=== PATIENT | female | born 1955 | race African-American/Black ===

== ENCOUNTER 2016-10-28 11:06 | Emergency (ER) | payer BC ==
[~2016-10-28] VITALS: Ht 170.2 cm; Wt 127.0 kg
[2016-10-28 11:15] VITALS: BP 126/80
--- NOTE | 2016-10-28 11:39 | RAD ---
2 view right shoulder radiograph 10/28/2016 Indication: Right shoulder fall and right shoulder pain Comparison: None. Findings: AP and scapular Y view of the right shoulder. No acute fracture or traumatic malalignment. Subchondral sclerosis and cysts at the greater tuberosity. No abnormal periarticular calcifications. Right acromioclavicular articulation is maintained. Impression: 1. No acute osseous abnormality. 2. Subchondral cystic changes at the greater tuberosity which can be associated with rotator cuff pathology. Clinical correlation is recommended
--- NOTE | 2016-10-28 12:03 | PHYS DOC ---
General Chief Complaint: SHOULDER INJURY Stated Complaint: RIGHT SHOULDER PAIN Time Seen by MD: 11:08 Source: patient Exam Limitations: no limitations Problems: History of Present Illness Initial Comments Patient is a 60-year-old female who comes to the ED complaining of right shoulder pain. Patient states that prior to arrival she was trying to leave her home for work. She says she stepped out onto a wooden step gave way and she fell landing on her posterior lateral right shoulder. She denies head trauma loss of consciousness headache or neck pain, she comes to the department complaining of severe posterior lateral right shoulder pain with movement. Patient states her symptoms are relieved at rest however any attempt to move her right arm results in severe posterolateral shoulder pain. She denies numbness weakness tingling or radiating symptoms but states she is unwilling to move her right arm at all due to the discomfort in her shoulder. No pre-arrival treatment no prior injury to this shoulder. Patient adamantly denies any other injuries resulting from the fall. Occurred: this morning Severity: moderate Injuries/Pain Location: upper extremity Context: other Loss of Consciousness: no loss of consciousness Modifying Factors: improves with immobilization, worse with jarring, worse with movement, improves with rest Associated Symptoms: other Allergies: Coded Allergies: No Known Drug Allergies (Unverified , 10/28/16) Past Medical History Medical History: no medical history Surgical History: noncontributory Social History Smoker: cigarettes Alcohol: occasionally Drugs: none Review of Systems Constitutional: denies chills, denies diaphoresis, denies fever, denies malaise Eyes: denies blindness, denies blurred vision, denies pain, denies photophobia Ears, Nose, Mouth, Throat: denies ear pain, denies ear discharge, denies nose pain, denies nose discharge, denies epistaxis, denies mouth pain, denies throat pain Respiratory: denies cough, denies shortness of breath, denies wheezing Cardiovascular: denies chest pain, denies palpitations, denies syncope Gastrointestinal: denies abdominal pain, denies nausea, denies vomiting Musculoskeletal: see HPI Psychiatric/Neurological: see HPI Physical Exam General Appearance: no apparent distress, obese Head: no evidence of injury (normocephalic atraumatic negative Gauthier sign negative raccoon eyes) Eyes: bilateral eye normal inspection, bilateral eye PERRL, bilateral eye EOMI Ears, Nose, Mouth, Throat: hearing grossly normal, no evidence of ENT injury ( multiple missing teeth) Neck: non-tender, full range of motion Cardiovascular/Respiratory: normal peripheral pulses, no respiratory distress Back: no CVA tenderness, no vertebral tenderness Extremities: other (diffuse posterolateral right shoulder tenderness no palpable deformity. SITS not tested due to patient discomfort/refusal, no swelling ecchymosis or other skin changes noted.) Neurologic/Psychiatric: track layer II-XII nml as tested, alert, normal mood/affect, oriented x 3, other (no definitive motor deficit noted, uncertain as to soft tissue pathology in the right shoulder as the patient was unwilling to undergo confrontational muscle testing.) Skin: normal color, warm/dry [place] Coma Score Best Eye Response: (4) open spontaneously Best Verbal Response: (5) oriented Best Motor Response: (6) obeys commands [place] Total: 15 Orders, Labs, Meds Right shoulder: No acute fracture or dislocation, interpreted by Dr. Colby. I discussed treatment options with the patient. I discussed smoking cessation and recommended she do so. Extremity neurovascularly intact after placed in a sling patient expressed agreement and understanding with the treatment plan. Departure Time of Disposition: 11:58 Disposition: 01 HOME, SELF-CARE Diagnosis: internal derangement R shoulder NOS, mechanical fa Condition: GOOD Patient Instructions: Fall Prevention and Home Safety, [id number], RICE - Routine Care for Injuries, [id number], Rotator Cuff Injury, Smoking Hazards Additional Instructions: Take an extra precaution and have the wooden step which caused you to fall repaired DEVANG. Work excuse and restriction: No use of right upper extremity until cleared by your doctor. RICE, see handout. Stop smoking, seek medical assistance if necessary. Wear the right shoulder sling as needed for symptom control until you follow up with your doctor. Fynm-jlk-[id number] ibuprofen 600 mg every 6-8 hours for baseline discomfort. Prescription: [place] 5 mg quantity 20 (take with food to avoid abdominal discomfort/nausea/vomiting). Follow-up with your doctor later this week for a recheck and further evaluation (may need MRI or orthopedics referral). Return to ED with new or changing symptoms. DIONNE COLBY DO Oct 28, 2016 12:03
[2016-10-28] MEDS ORDERED: HYDR-971 PO (12:04)
== END 2016-10-28 12:14 | disposition home or self-care (01) ==
LOC: ER 11:06
DX: M24.811 Other specific joint derangements of right shoulder, not elsewhere classified (principal); F17.210 Nicotine dependence, cigarettes, uncomplicated; W10.9XXA Fall (on) (from) unspecified stairs and steps, initial encounter; Y93.89 Activity, other specified; Y99.8 Other external cause status; Y92.009 Unspecified place in unspecified non-institutional (private) residence as the place of occurrence of the external cause
CPT/HCPCS: 73030; 99284

== ENCOUNTER 2018-03-07 15:11 | Emergency (ER) | payer BC ==
[~2018-03-07] VITALS: Ht 172.7 cm; Wt 113.0 kg
[~2018-03-07 15:11] MED LIST: HYDR-3165 PO
[2018-03-07] MEDS ORDERED: PRED50TA PO (15:44)
[2018-03-07] MEDS ORDERED: MELO7.5T29 PO (15:44)
--- NOTE | 2018-03-07 15:44 | PHYS DOC ---
Past History Past Medical History: No Pertinent History Past Surgical History: No Surgical History Smoking: Non-smoker Alcohol Use: None Drug Use: None Adult General Chief Complaint Chief Complaint: UPPER EXTREMITY PAIN HPI HPI Patient is a 62 year old female who presents with left upper extremity pain and numbness. This been going on "a while." Patient reports falling in 2017 and having had the pain and numbness since that time. Patient has not seen her primary care physician for this and has taken no medicines. Nothing seems to make this better or worse. Patient reports a numb sensation in all 5 fingers along with them feeling cold when compared with her right hand. Patient is right -hand dominant. Denies any more recent trauma. Denies any chest pain or palpitations. Reports the symptoms to be moderate in intensity and cause her difficulty in sleeping habits recent she presented to the emergency department today.[] Review of Systems Review of Systems Constitutional: Denies fever or chills [] Eyes: Denies change in visual acuity, redness, or eye pain [] HENT: Denies nasal congestion or sore throat [] Respiratory: Denies cough or shortness of breath [] Cardiovascular: Chest pain or palpitations[] GI: Denies abdominal pain, nausea, vomiting, bloody stools or diarrhea [] : Denies dysuria or hematuria [] Musculoskeletal: See history of present illness[] Integument: Denies rash or skin lesions [] Neurologic: Denies headache or focal weakness[] Endocrine: Denies polyuria or polydipsia [] All other systems were reviewed and found to be within normal limits, except as documented in this note. Allergies Allergies Allergies Coded Allergies Type Severity Reaction Last Updated Verified No Known Drug Allergies 10/28/16 No Physical Exam Physical Exam Constitutional: Well developed, well nourished, no acute distress, non-toxic appearance. [] HENT: Normocephalic, atraumatic, bilateral external ears normal, oropharynx moist, no oral exudates, nose normal. [] Eyes: PERRLA, EOMI, conjunctiva normal, no discharge. [] Neck: Normal range of motion, no tenderness, supple, no stridor. [] Cardiovascular:Heart rate regular rhythm, no murmur [] Lungs & Thorax: Bilateral breath sounds clear to auscultation [] Abdomen: Not examined[] Skin: Warm, dry, no erythema, no rash. [] Back: No tenderness, no CVA tenderness. [] Extremities: + tenderness around the left shoulder, finger tips of her left hand do feel cool when compared to her right, no cyanosis, no clubbing, ROM intact, no edema. [] Neurologic: Alert and oriented X 3, normal motor function, no focal deficits noted. When performing 2 point discrimination of her left hand, she would report 2 points when I was only touching her with one. This makes the 2 point discrimination unreliable. There were other times when she would say 1 when the two points were by 20+mm. [] Psychologic: Affect normal, judgement normal, mood normal. [] EKG EKG [] Radiology/Procedures Radiology/Procedures [] Course & Med Decision Making Course & Med Decision Making Pertinent Labs and Imaging studies reviewed. (See chart for details) Medical decision making: This appears to be a long-standing problem for this patient, do not see any evidence of any acute neurologic or vascular compromise. We will start with anti-inflammatory medication along with pain medication and have patient follow up with her primary care physician. There is no evidence of an infection nor stroke syndrome nor this being of cardiac etiology.[] Dragon Disclaimer Dragon Disclaimer This electronic medical record was generated, in whole or in part, using a voice recognition dictation system. Departure Departure: Impression: Primary Impression: Paresthesia of left upper extremity Disposition: 01 HOME, SELF-CARE Condition: GOOD Referrals: FERNANDO SPANN DO (PCP) Follow-up in 2 days Patient Instructions: Paresthesia Additional Instructions: Follow-up with your primary care physician in 2 days. Take the medication as prescribed. Return to the ER if worsening pain or any other concerns. Scripts Prednisone (PREDNISONE) 50 Mg Tablet 1 TAB PO DAILY for INFLAMMATION, #5 TAB Prov: JOSE HOYOS DO 03/07/18 Meloxicam (MELOXICAM) 7.5 Mg Tablet 7.5 MG PO DAILY for PAIN, #20 TAB Prov: JOSE HOYOS DO 03/07/18 JOSE HOYOS DO Mar 07, 2018 15:44
[2018-03-07 16:00] VITALS: BP 122/73
== END 2018-03-07 16:00 | disposition home or self-care (01) ==
LOC: ER 15:11
DX: R20.2 Paresthesia of skin (principal); M79.602 Pain in left arm
CPT/HCPCS: 99283

== ENCOUNTER → 2018-04-08 | Outpatient (CLI) | payer BC, OTHER ==
[~2018-04-08] MED LIST changes: +MELO7.5T29 PO; +PRED50TA PO
[2018-04-08 17:49] LABS: ALBUMIN 3.4 g/dL (3.4-5.0); ALBUMIN/GLOBULIN RATIO 0.9 (1.0-1.7); CALCIUM 8.8 mg/dL (8.5-10.1); GFR 68.2; POTASSIUM 4.1 mmol/L (3.5-5.1); TOTAL BILIRUBIN 0.4 mg/dL (0.2-1.0); TOTAL PROTEIN 7.3 g/dL (6.4-8.2)
[2018-04-08 18:08] LABS: BASO % 1 % (0-3); EOS # 0.1 x10^3/uL (0.0-0.7); EOS % 4 % (0-3); HEMATOCRIT 41.4 % (36.0-47.0); HEMOGLOBIN 14.1 g/dL (12.0-15.5); LYMPH # 1.7 x10^3/uL (1.0-4.8); LYMPH % 46 % (24-48); MEAN CORPUSCULAR HEMOGLOBIN 31 pg (25-35); MEAN CORPUSCULAR HGB CONC 34 g/dL (31-37); MEAN CORPUSCULAR VOLUME 91 fL (79-100); MONO # 0.2 x10^3/uL (0.0-1.1); MONO % 6 % (0-9); NEUT # 1.6 x10^3uL (1.8-7.7); NEUT % 43 % (31-73); PLATELET COUNT 180 x10^3/uL (140-400); RED BLOOD COUNT 4.54 x10^6/uL (3.50-5.40); RED CELL DISTRIBUTION WIDTH 13.8 % (11.5-14.5); WHITE BLOOD COUNT 3.7 x10^3/uL (4.0-11.0)
[2018-04-09 03:13] LABS: HEMOGLOBIN A1C 5.2 % (4.8-5.6)
== END | disposition home or self-care (01) ==
LOC: SPEC 17:18
PROVIDERS: ATTEND Nurse Practitioner Family
DX: E66.01 Morbid (severe) obesity due to excess calories (principal); Z72.0 Tobacco use
CPT/HCPCS: 36415; 80053; 80061; 83036; 85025

== ENCOUNTER → 2018-04-14 | Outpatient (CLI) | payer BC, OTHER ==
--- NOTE | 2018-04-15 08:44 | RAD ---
DATE: 04/14/2018 EXAM: DIGITAL SCREEN BILAT W/CAD HISTORY: Routine screening COMPARISON: 11/09/2009 This study was interpreted with the benefit of Computerized Aided Detection (CAD). Breast Density: SCATTERED The breast parenchyma shows scattered fibroglandular densities. Breast parenchyma level B. FINDINGS: Several small smooth nodules in the lateral aspects of both breasts are unchanged and are probably intramammary lymph nodes. No new or enlarging breast densities are seen. Benign type calcifications are present. No suspicious microcalcifications have developed. IMPRESSION: Stable mammograms without evidence of malignancy. BI-RADS CATEGORY: 2 BENIGN FINDING(S) RECOMMENDED FOLLOW-UP: 12M 12 MONTH FOLLOW-UP PQRS compliance statement: Patient information was entered into a reminder system with a target due date for the next mammogram. Mammography is a sensitive method for finding small breast cancers, but it does not detect them all and is not a substitute for careful clinical examination. A negative mammogram does not negate a clinically suspicious finding and should not result in delay in biopsying a clinically suspicious abnormality. "Our facility is accredited by the [employer] Mammography Program."
== END | disposition home or self-care (01) ==
LOC: MAMMO 11:44
PROVIDERS: ATTEND Nurse Practitioner Family
DX: Z12.31 Encounter for screening mammogram for malignant neoplasm of breast (principal); N64.89 Other specified disorders of breast
CPT/HCPCS: 77067

== ENCOUNTER → 2019-10-07 | Outpatient (CLI) | payer OTHER ==
--- NOTE | 2019-10-07 15:08 | RAD ---
Right knee 3 views. HISTORY: Degenerative joint disease 3 views were taken of the right knee. There is no fracture or joint effusion. There is hypertrophic spurring on the patella. There is slight hypertrophic change in the lateral joint compartment. There is soft tissue calcification. There is mild vascular calcification. There is no fracture or joint effusion. IMPRESSION: 1. Mild osteoarthritis right knee. Electronically signed by: Sameer Grajeda MD (10/07/2019 3:05 PM) [facility]
== END ==
LOC: DXRAD 11:33
PROVIDERS: ATTEND Nurse Practitioner Family
DX: M17.11 Unilateral primary osteoarthritis, right knee (principal); M25.861 Other specified joint disorders, right knee; M76.891 Other specified enthesopathies of right lower limb, excluding foot
CPT/HCPCS: 73562

== ENCOUNTER 2021-02-04 14:07 | Emergency (ER) | payer OTHER ==
[~2021-02-04] VITALS: Ht 170.2 cm; Wt 113.0 kg
[2021-02-04 14:07] VITALS: BP 145/78
[2021-02-04] MEDS ORDERED: HYDROcodone/APAP 5/325MG 1 TAB TABLET PO ONE (14:45)
--- NOTE | 2021-02-04 15:03 | PHYS DOC ---
Past History Past Medical History: No Pertinent History (JUVE BUSCH APRN) Past Surgical History: No Surgical History (JUVE BUSCH APRN) Smoking: Non-smoker Alcohol Use: None Drug Use: None (JUVE BUSCH APRN) General Adult EDM: Chief Complaint: KNEE INJURY HPI: HPI: Patient is a 65-year-old female presents with right knee pain. Patient states that she has had the same pain for the last few months and was seen at [facility]. Patient was told she had arthritis in her knee. Patient been taking ibuprofen at home with no relief. Reports pain is worse with straightening out her leg. Range of motion intact. Patient ambulated on her own in the ER. Patient reports this is a chronic problem. Denies known injury. (JUVE BUSCH APRN) Review of Systems: Review of Systems: ROS At least 10 ROS systems have been reviewed and are negative except as documented in the HPI. General: Negative except as outlined in HPI above. Skin: Negative except as outlined in HPI above. HEENT: Negative except as outlined in HPI above. Neck: Negative except as outlined in HPI above. Respiratory: Negative except as outlined in HPI above.. Cardiovascular: Negative except as outlined in HPI above. Abdomen: Negative except as outlined in HPI above. : Negative except as outlined in HPI above. Back/MSK: Negative except as outlined in HPI above. Neuro: Negative except as outlined in HPI above. Psych: Negative except as outlined in HPI above. (JUVE BUSCH APRN) Current Medications: Current Meds: Current Medications Medications (Trade) Dose Ordered Sig/Evelina Start Time Stop Time Status Last Admin Dose Admin Acetaminophen/ Hydrocodone Bitart (Lortab 5/325) 1 tab 1X ONCE 02/04/21 14:45 02/04/21 14:46 DC 02/04/21 14:48 1 TAB (JUVE BUSCH APRN) Allergies: Allergies: Allergies Coded Allergies Type Severity Reaction Last Updated Verified No Known Drug Allergies 10/28/16 No (JUVE BUSCH APRN) Physical Exam: PE: Constitutional: Well developed, well nourished, no acute distress, non-toxic appearance. [] HENT: Normocephalic, atraumatic, bilateral external ears normal, oropharynx moist, no oral exudates, nose normal. [] Eyes: PERRLA, EOMI, conjunctiva normal, no discharge. [] Neck: Normal range of motion, no tenderness, supple, no stridor. [] Cardiovascular:Heart rate regular rhythm, no murmur [] Lungs & Thorax: Bilateral breath sounds clear to auscultation [] Abdomen: Bowel sounds normal, soft, no tenderness, no masses, no pulsatile masses. [] Skin: Warm, dry, no erythema, no rash. [] Back: No tenderness, no CVA tenderness. [] Extremities: Right knee tenderness, ROM intact, no edema. [] Neurologic: Alert and oriented X 3, normal motor function, normal sensory function, no focal deficits noted. [] Psychologic: Affect normal, judgement normal, mood normal. [] (JUVE BUSCH APRN) Current Patient Data: Vital Signs: Vital Signs Date Time Temp Pulse Resp B/P (MAP) Pulse Ox O2 Delivery O2 Flow Rate FiO2 02/04/21 14:07 97.9 70 16 145/78 (100) 99 Room Air (JUVE BUSCH APRN) EKG: EKG: [] (JUVE BUSCH APRN) Radiology/Procedures: Radiology/Procedures: []INDICATION: Reason: R KNEE PAIN / Spl. Instructions: / History: COMPARISON: October 07, 2019 IMPRESSION: Right knee: 3 views obtained. Degenerative changes of the right knee with mild osteophyte formation. Calcifications are again seen within the soft tissues adjacent to the knee. Edema at Hoffa's fat pad as well as small joint effusion. Degenerative changes the patellofemoral compartment with subchondral cyst formation and articular surface irregularity with osteophyte formation. No definite acute fracture or dislocation. Electronically signed by: Catalino Shah MD (02/04/2021 3:30 PM) [id number] (JUVE BUSCH APRN) Heart Score: C/O Chest Pain: No Risk Factors: Risk Factors: DM, Current or recent (<one month) smoker, HTN, HLP, family history of CAD, obesity. Risk Scores: Score 0 - 3: 2.5% MACE over next 6 weeks - Discharge Home Score 4 - 6: 20.3% MACE over next 6 weeks - Admit for Clinical Observation Score 7 - 10: 72.7% MACE over next 6 weeks - Early Invasive Strategies (JUVE BUSCH APRN) Course & Med Decision Making: Course & Med Decision Making Pertinent Labs and Imaging studies reviewed. (See chart for details) [] 65-year-old female presents with chronic, right knee pain. Patient pain treated with hydrocodone while in the ER. X-ray of right knee ordered to rule out acute abnormality. Knee x-ray concerning for osteoarthritis. Discussed results with patient. Educated patient on rice. Instructed to take ibuprofen for pain. Follow-up with PCP for further management and/or possible further imaging. (JUVE BUSCH APRN) Course & Med Decision Making I was the Attending physician on the above date of service of this patient. This patient was evaluated, examined, treated, and dispositioned from the emergency department by the mid-level practitioner. Although I was working at the time , no assistance was requested. Electronically signed, Delmy Beckman DO (DELMY BECKMAN DO) Vitaliy Disclaimer: Vitaliy Disclaimer: This electronic medical record was generated, in whole or in part, using a voice recognition dictation system. (JUVE BUSCH APRN) Departure Departure: Impression: Primary Impression: Right knee pain Qualified Codes: M25.561 - Pain in right knee; G89.29 - Other chronic pain Disposition: 01 HOME / SELF CARE / HOMELESS Condition: STABLE Referrals: PCP,CLAUDIA (PCP) Patient Instructions: Knee Pain, [id number] Additional Instructions: You were seen in the emergency room for right knee pain. You denied known injury. Your x-ray showed arthritis in your knee. Try and rest, use ice to the area, use ibuprofen for pain. You need to call your PCP and make a follow-up appointment for possible further imaging and treatment options. Return to emergency room with worsening symptoms or concerns. EMERGENCY DEPARTMENT GENERAL DISCHARGE INSTRUCTIONS Thank you for coming to [facility] (ED) today and trusting us with you care. We trust that you had a positivie experience in our Emergency Department. If you wish to speak to the department management, you may call the director at [phone]. YOUR FOLLOW UP INSTRUCTIONS ARE FOLLOWS: 1. Do you have a private Doctor? If you do not have a private doctor, please ask for a resource list of physicians or clinics that may be able to assist you with follow up care. 2. The Emergency Physician has interpreted your x-rays. The X-Ray specialist will also review them. If there is a change in the findings, you will be notified in 48 hours when at all possible. 3. A lab test or culture has been done, your results will be reviewed and you will be notified if you need a change in treatment. ADDITIONAL INSTRUCTIONS AND INFORMATION: 1. Your care today has been supervised by a physician who is specially trained in emergency care. Many problems require more than one evaluation for a complete diagnosis and treatment. We recommend that you schedule your follow up appointment as recommended to ensure complete treatment of you illness or injury. If you are unable to obtain follow up care and continue to have a problem, or if your condition worsens, we recommend that you return to the ED. 2. We are not able to safely determine your condition over the phone nor are we able to give sound medical advice over the phone. For these safety reasons, if you call for medical advice we will ask you to come to the ED for further evaluation. 3. If you have any questions regarding these discharge instructions please call the ED at [phone]. SAFETY INFORMATION: In the interest of safety, wellness, and injury prevention; we encourage you to wear your sealbelt, if you smoke; quite smoking, and we encourage family to use a protective helmet for bicycling and other sporting events that present an increased risk for head injury. IF YOUR SYMPTOMS WORSEN OR NEW SYMPTOMS DEVELOP, OR YOU HAVE CONCERNS ABOUT YOUR CONDITION; OR IF YOUR CONDITION WORSENS WHILE YOU ARE WAITING FOR YOUR FOLLOW UP LINDA OINTMENT; EITHER CONTACT YOUR PRIMARY CARE DOCTOR, THE PHYSICIAN WHOSE NAME AND NUMBER YOU WERE GIVEN, OR RETURN TO THE ED IMMEDIATELY. Scripts Hydrocodone Bit/Acetaminophen (HYDROCODONE-APAP 5-325 ) 1 Each Tablet 1-2 TAB PO PRN Q6HRS PRN for PAIN for 3 Days, #12 TAB 0 Refills Prov: JUVE BUSCH APRN 02/04/21 JUVE BUSCH APRN Feb 04, 2021 15:03 DELMY BECKMAN DO Feb 07, 2021 00:42
--- NOTE | 2021-02-04 15:33 | RAD ---
INDICATION: Reason: R KNEE PAIN / Spl. Instructions: / History: COMPARISON: October 07, 2019 IMPRESSION: Right knee: 3 views obtained. Degenerative changes of the right knee with mild osteophyte formation. Calcifications are again seen within the soft tissues adjacent to the knee. Edema at Hoffa's fat pad as well as small joint effusion. Degenerative changes the patellofemoral compartment with subchondral cyst formation and articular surface irregularity with osteophyte formation. No definite acute fract ure or dislocation. Electronically signed by: Catalino Shah MD (02/04/2021 3:30 PM) [id number]
[2021-02-04] MEDS ORDERED: HYDR-2155 PO (15:50)
== END 2021-02-04 15:55 | disposition home or self-care (01) ==
LOC: ER 14:07
DX: M25.561 Pain in right knee (principal); G89.29 Other chronic pain
CPT/HCPCS: 73564; 99283